=== PATIENT | female | born 1945 | race African-American/Black ===

== ENCOUNTER 2019-01-18 20:00 | Emergency (ER) | payer MEDICARE, OTHER ==
[~2019-01-18] VITALS: Ht 162.6 cm; Wt 68.0 kg
[2019-01-18] MEDS ORDERED: methylPREDNISolone SOD SUCC PF 125 MG/2 ML VIAL. IV ONE (20:30)
[2019-01-18] MEDS ORDERED: diphenhydrAMINE 50 MG/ML VIAL IVP ONE (20:30)
[2019-01-18 22:00] VITALS: BP 157/76
[2019-01-18] MEDS ORDERED: DIPH25CA58 PO (23:23)
--- NOTE | 2019-01-18 23:23 | PHYS DOC ---
Past Medical History Past Medical History: Hypertension, Hepatitis Additional Past Medical Histor: "short term memory loss" Past Surgical History: No Surgical History Alcohol Use: None Drug Use: None Adult General Chief Complaint Chief Complaint: ALLERGIC REACTION HPI HPI Patient is a 73-year-old female who presents with complaint of redness to her skin and itching approximately 1 hour after having received IV contrast. Patient states that she took a Claritin tablet before coming to the emergency room but that has not been helping. She denies any chest pain or shortness of breath. There are no alleviating or exacerbating factors. Review of Systems Review of Systems Constitutional: Denies fever or chills [] Respiratory: Denies cough or shortness of breath [] Cardiovascular: No additional information not addressed in HPI [] Integument: Positive skin redness and itching[] Neurologic: Denies headache, focal weakness or sensory changes [] Current Medications Current Medications Current Medications Medications (Trade) Dose Ordered Sig/Kalpana Start Time Stop Time Status Last Admin Dose Admin Diphenhydramine HCl (Benadryl) 50 mg 1X ONCE 01/18/19 20:30 01/18/19 20:31 DC 01/18/19 20:31 50 MG Methylprednisolone Sodium Succinate (SOLU-Medrol 125MG VIAL) 125 mg 1X ONCE 01/18/19 20:30 01/18/19 20:31 DC 01/18/19 20:31 125 MG Allergies Allergies Allergies Coded Allergies Type Severity Reaction Last Updated Verified Iodinated Contrast- Oral and IV Dye Allergy Mild rash/redness 01/18/19 Yes Physical Exam Physical Exam Constitutional: Well developed, well nourished, no acute distress, non-toxic appearance. [] HENT: Normocephalic, atraumatic, bilateral external ears normal, oropharynx moist, no oral exudates, nose normal. [] Neck: Normal range of motion, no tenderness, supple, no stridor. [] Cardiovascular:Heart rate regular rhythm, no murmur [] Lungs & Thorax: Bilateral breath sounds clear to auscultation [] Skin: Skin is erythematous and warm, especially in truncal and upper extremity areas. [] Neurologic: Alert and oriented X 3, no focal deficits noted. [] Current Patient Data Vital Signs Vital Signs Date Time Temp Pulse Resp B/P (MAP) Pulse Ox O2 Delivery O2 Flow Rate FiO2 01/18/19 22:00 82 18 157/76 (103) 96 Room Air 01/18/19 20:00 98.7 98.7 EKG EKG [] Radiology/Procedures Radiology/Procedures [] Course & Med Decision Making Course & Med Decision Making Pertinent Labs and Imaging studies reviewed. (See chart for details) [] Dragon Disclaimer Dragon Disclaimer This electronic medical record was generated, in whole or in part, using a voice recognition dictation system. Departure Departure Impression: Primary Impression: Allergic reaction Disposition: HOME, SELF-CARE Condition: STABLE Referrals: UNKNOWN PCP NAME (PCP) Patient Instructions: Drug Allergy Scripts Methylprednisolone (MEDROL) 4 Mg Tab.ds.pk 1 PKG PO UD, #1 PKG Prov: MARGARET PUTNAM Jr. DO 01/18/19 Diphenhydramine Hcl (BENADRYL) 25 Mg Capsule 1 CAP PO Q4-6HRS PRN for ALLERGIES, #30 CAP Prov: MARGARET PUTNAM Jr. DO 01/18/19 Problem Qualifiers Primary Impression: Allergic reaction Encounter type: initial encounter Qualified Codes: T78.40XA - Allergy, unspecified, initial encounter MARGARET PUTNAM Jr. DO Jan 18, 2019 23:23
[2019-01-18] MEDS ORDERED: METH4TAB2 PO (23:26)
== END 2019-01-18 23:35 | disposition home or self-care (01) ==
LOC: ER 20:00
DX: T78.40XA Allergy, unspecified, initial encounter (principal); I10 Essential (primary) hypertension; Z91.041 Radiographic dye allergy status
CPT/HCPCS: 96374; 96375; 99284; J1200; J2930